=== PATIENT | male | born 1950 | race Caucasian/White ===

== ENCOUNTER → 2017-02-11 | Day surgery (SDC) | payer OTHER ==
[~2017-02-11] MED LIST: ASPI81TA82 PO; CARV3.12 PO; IOHEXOL 180 MG/ML 20 ML VIAL (for RAD DIAG) OTHER ONE; LACTATED RINGER'S 1000 ML INJ 1,000 ML ONE; LIDOCAINE HCL 1% PF 30 ML VIAL ONE; LISI-357 PO; MIDAZOLAM HCL 2 MG/2 ML VIAL ONE; PROPOFOL 200 MG/20 ML AMP IV ONE; TERA1CAP8 PO; TRAM50 PO; TRIAMCINOLONE ACETONIDE 40 MG/ML VIAL ONE
--- NOTE | 2017-02-11 13:33 | TN ---
cc: HARPREET HAAS Corrected Copy: 02/24/17 DATE OF SURGERY 02/11/2017 PREOPERATIVE DIAGNOSIS Malfunctioning right total knee replacement arthroplasty POSTOPERATIVE DIAGNOSIS Malfunctioning right total knee replacement arthroplasty PROCEDURE 1. Aspiration right knee under anesthesia. 2. Manipulation right knee under anesthesia. 3. Arthrogram of the right knee number. 4. Use of fluoroscopy for percutaneous needle placement. 5. Intraoperative x-ray right knee, two views. SURGEON Harpreet Haas MD ANESTHESIA TIVA BLOOD LOSS None INDICATION This patient is a 66-year-old male who is over 10 years status post right total knee replacement arthroplasty done elsewhere. The patient is having clinical evidence of subsidence of the tibial component and concern of loosening. He presents for evaluation for possible infection with malfunction of the components. PROCEDURE The patient was brought to the operating room, given limited sedation. The right knee was evaluated under anesthesia. Range of motion was extension full, flexion 100 degrees. This is fairly stable to varus-valgus stress. The right knee was scrubbed with alcohol, followed by Hibiclens, followed by Chloraprep and draped sterilely. Under fluoroscopic guidance, the needle was placed into a subpatellar position. 10 cc of fluid was aspirated. This was sent for cell count, crystals and culture and sensitivity. We then injected with 10 cc of Omnipaque 180. The knee was evaluated under anesthesia. We could see tracking of the contrast underneath the femoral component and tibial component consistent with loosening. The patella was in a significantly baja position. The needle was withdrawn. A Band-Aid was placed on this region. The patient was awakened and taken to recovery in satisfactory condition. MD LASHAY Fields/ROSA /1:10 PM /12:22 PM
[2017-02-11 17:00] LABS: WBC, SYNOVIAL FLUID 600 /MM3 (0-200)
== END | disposition home or self-care (01) ==
LOC: ESDC 10:24
PROVIDERS: ATTEND Orthopaedic Surgery Orthopaedic Surgery of the Spine
DX: T84.090A Other mechanical complication of internal right hip prosthesis, initial encounter (principal)
CPT/HCPCS: 01200; 27275; 73560; 76000; 87015; 87070; 87102; 87116; 87205; 87206; 89051; 89060; J2250; J3010; J7120; Q9965; J3301

== ENCOUNTER 2017-03-15 06:55 | Inpatient (IN) | payer OTHER, MEDICARE ==
[~2017-03-15] VITALS: Ht 180.3 cm; Wt 76.9 kg
[~2017-03-15 06:55] MED LIST changes: +ASPI81TA11 PO; -ASPI81TA82 PO; -IOHEXOL 180 MG/ML 20 ML VIAL (for RAD DIAG) OTHER ONE; -LACTATED RINGER'S 1000 ML INJ 1,000 ML ONE; -LIDOCAINE HCL 1% PF 30 ML VIAL ONE; -LISI-357 PO; +LISI-519 PO; -MIDAZOLAM HCL 2 MG/2 ML VIAL ONE; +OMEP20TA PO; -PROPOFOL 200 MG/20 ML AMP IV ONE; +SIMV20TA PO; -TERA1CAP8 PO; +TERA2CAP3 PO; -TRAM50 PO; -TRIAMCINOLONE ACETONIDE 40 MG/ML VIAL ONE; +VITA1000 PO
[2017-03-15] MEDS ORDERED: INSULIN HUMAN REGULAR 1,000 UNITS/10 ML VIAL SQ PRN (07:30)
[2017-03-15] MEDS ORDERED: LACTATED RINGER'S 1000 ML IV PRN (07:30)
[2017-03-15] MEDS ORDERED: CHLORHEXIDINE GLUCONATE 2 % 1 PACK (2 CLOTHS) TOPICAL PRN (07:30)
[2017-03-15] MEDS ORDERED: SODIUM CHLORID 0.9% 500 ML IV PRN (07:30)
[2017-03-15] MEDS ORDERED: VANCOMYCIN 1000 MG/NS 250 ML (for <70 kg) IV SCH ×2 (07:30)
[2017-03-15] MEDS ORDERED: METOPROLOL TARTRATE 25 MG TAB PO PRN (07:30)
[2017-03-15] MEDS ORDERED: POVIDONE IODINE 7.5% SCRUB 118 ML BOTTLE TOPICAL SCH (07:30)
[2017-03-15] MEDS ORDERED: POVIDONE IODINE 5% (ANTISEPSIS KIT) 4 APPLICATIONS EACH NARE PRN (07:30)
[2017-03-15] MEDS ORDERED: METO25TA3 PO (07:44)
[2017-03-15] MEDS ORDERED: SODIUM CHLORIDE 0.9% IV SCH ×2 (08:00→14:29)
[2017-03-15] MEDS ORDERED: EXPAREL PERI-ARTICULAR INJECTION (TOTAL VOL. 60 ML) P-ARTICULR SCH ×2 (08:00)
[2017-03-15] MEDS ORDERED: ceFAZolin 2 GM PREMIX 50 ML IV SCH (08:00)
[2017-03-15] MEDS ORDERED: TRANEXAMIC ACID IV SCH ×2 (08:00→14:29)
[2017-03-15] MEDS ORDERED: GENTAMICIN SULFATE 80 MG/2 ML VIAL ONE (09:49)
[2017-03-15] MEDS ORDERED: DEXAMETHASONE SOD PHOS PF 10 MG/ML VIAL ONE (10:08)
[2017-03-15] MEDS ORDERED: BUPIVACAINE HCL PF 0.5% 30 ML VIAL ONE (10:08)
[2017-03-15] MEDS: LACTATED RINGER'S 1000 ML INJ 1,000 ML IV SCH (14:44)
[2017-03-15] MEDS ORDERED: MISCELLANEOUS PHARMACY INFORMATION XX ONE (14:45)
[2017-03-15] MEDS ORDERED: MISCELLANEOUS NURSING INFORMATION XX PRN (14:45)
[2017-03-15] MEDS ORDERED: MORPHINE SULFATE 30 MG/30 ML PCA IV SCH (14:45)
[2017-03-15] MEDS ORDERED: SODIUM CHLORIDE 0.9% FLUSH 5 ML FLUSH IVF PRN (14:45)
[2017-03-15] MEDS ORDERED: Post-op Orders (for Pharmacy) MISC XX ONE (14:45)
[2017-03-15] MEDS ORDERED: MORPHINE SULFATE 8 MG/ML INJ IM PRN (14:45)
[2017-03-15] MEDS ORDERED: NALOXONE HCL 0.4 MG/ML AMP IV PUSH PRN (14:45)
[2017-03-15] MEDS ORDERED: TEMAZEPAM 15 MG CAP PO PRN (14:45)
[2017-03-15] MEDS ORDERED: OXYC-392 PO (14:49)
[2017-03-15] MEDS ORDERED: XARE10TA PO (14:49)
--- NOTE | 2017-03-15 14:59 | PD.OP ---
cc: Venkat Stephenson MD Operative Report Date of Surgery: Mar 15, 2017 Preoperative Diagnosis: Malfunctioning right total knee replacement arthroplasty. Loosening of right femoral and possibly tibial component right total knee replacement arthroplasty Postoperative Diagnosis: Malfunctioning right total knee replacement arthroplasty. Loosening of right femoral component Procedure: Revision right total knee replacement arthroplasty. Proximal tibial osteotomy and fixation Anesthesia: Gen. Surgeon: Venkat Stephenson Safety Spec(s): EMILIE Kyle Operation and Findings: EBL: 200 cc INDICATION: This patient presents with long-standing arthritis of the knee. This patient has had extensive conservative care and came to a total knee replacement arthroplasty. This patient now has malfunctioning components with loosening and evidence of subsidence. This patient presents for revision knee arthroplasty. NOTE: Erum Kyle PA-C was present for the entire surgical procedure as my reference assistant. In my medical opinion her skill and care was necessary for proper management of this patient. TOURNIQUET TIME: 122 minutes COMPANY: [employer] FEMUR: Size 4, posterior stabilized, right, cemented, 4 mm medial and lateral distal augment buildup TIBIA: Size 4, fixed bearing, 115 mm x 14 mm uncemented stem PATELLA: 38 mm POLYETHYLENE INSERT: 12.5 mm, posterior stabilized PROCEDURE: This patient was brought the operating room and anesthetized in the supine position. The patient was positioned supine on the table. The tourniquet was placed about the thigh, and the leg was scrubbed with alcohol followed by Hibiclens followed by ChloraPrep and draped sterilely. A timeout was done, and antibiotics were given. After exsanguination the tourniquet was inflated to 250 mmHg. An anterior incision was made and a median parapatellar arthrotomy was performed. The previous incision was excised. Because the patella was in a patella baja position and very scarred down, this would have put the patella tendon insertion at risk. We elected to do a proximal tibial osteotomy. I saw was used along the medial side. An osteotome proximally with a small saw distally at an angle. Osteotomes were placed in the lateral side and very carefully this was opened removing the proximal tibial tuberosity with the patella tendon attachment extending approximately 7 cm. His protected. The patella was released laterally and subluxed allowing freehand cut of the patella which was then sized. A metal cap was placed over the exposed patellar surface for protection. The distal femur had significant osteolysis around it and was loosened. Multiple osteotomes were used to remove this carefully. This was removed in a retrograde fashion. Most of the bone was remaining and very little bone stock was lost. The attention was directed down back to the tibia. Very carefully a saw was used followed by osteotomes and the proximal tibial component was removed in a retrograde fashion. The tibia was approached and reamed to accept a 14 mm reamer. This is sized for a 115 mm stem the intramedullary reamer was used for a guide. This was then cut for a #4 tibial component. All fit was excellent. The attention was directed to the femur. We cut this at 4 using a primary posterior stabilized component. This was sized carefully. Anterior posterior and chamfer cuts were made. The box cut was made allowing a 4 mm distal buildup. We did this intentionally because of the patella Baha position allowing the joint to be placed slightly inferior in helping the patella because of the condition. We did a trial reduction and found that between a 10 and 12.5 mm insert fit best. Trial reduction showed that the insert fit nicely with a 12.5 mm insert.. The patient had range of motion extension 0 flexion 125 . A medial release was not necessary. Multiple drill holes were placed in the tibial tubercle osteotomy. We then placed #2 fiber wires through these drill holes placing them then into the canal so that the stem of the tibial component could act as a buttressing anchor. The bony surfaces prepared. On the back table 2 packets of methylmethacrylate were mixed. The components were cemented. Excess cement was removed. The tourniquet let down and hemostasis was controlled. The final plastic insert was inserted. Range of motion was the same as previously noted. The tibial tubercle osteotomy was repaired in the overall repair was felt to be very satisfactory. There was no complication was appreciated. A drain was brought through a separate stab incision. The arthrotomy was repaired with interrupted #1 Vicryl suture, subcutaneous tissue 2-0 Vicryl suture and skin with metallic laurence A sterile dressing was applied. Sponge counts, needle counts and instrument counts were all correct. The patient tolerated procedure well and was taken to recovery in satisfactory condition. FINDINGS: There was evidence of loosening of the femoral component. There was ostial lysis underneath the tibial component. The overall bone stock was satisfactory. We could not appreciate any complication. Venkat Stephenson MD Mar 15, 2017 14:59
[2017-03-15] MEDS ORDERED: DO NOT ADM ANY ANTICOAGULANT DRUGS PRN (15:18)
--- NOTE | 2017-03-15 16:08 | RADRPT ---
EXAM DATE/TIME: 03/15/2017 15:27 [facility] COMPARISON: KNEE RIGHT LTD (1 OR 2 VWS), February 11, 2017, 12:58. INDICATIONS : Post op right knee. MEDICAL HISTORY : None. SURGICAL HISTORY : None. ENCOUNTER: Initial ACUITY: 1 day PAIN SCORE: Non-responsive. LOCATION: Right knee. FINDINGS: 2 view examination demonstrates total knee arthroplasty with long shaft tibial component. Near-anato mireya alignment of the osseous structures. Skin laurence and suprapatellar drain in place. CONCLUSION: Expected postsurgical findings post total knee arthroplasty. Rajat Brink MD on March 15, 2017 at 16:04 Board Certified Radiologist. This report was verified electronically.
[2017-03-15 17:26] VITALS: BP 158/76; PULSE 76; RESP 17; TEMP 96.4; O2SAT 95
[2017-03-15 19:40] VITALS: BP 146/70; PULSE 82; RESP 18; TEMP 96.1; O2SAT 96
[2017-03-15] MEDS: SENNOSIDES 8.6 MG TAB PO SCH (19:46)
[2017-03-15] MEDS: PRAVASTATIN SOD 40 MG TAB PO SCH (19:46)
[2017-03-15] MEDS: TERAZOSIN HCL 1 MG CAP PO SCH (19:46)
[2017-03-15] MEDS: MAGNESIUM HYDROXIDE SUSP 30 ML CUP PO SCH (19:46)
[2017-03-15] MEDS: METOPROLOL TARTRATE 25 MG TAB PO SCH (19:46)
[2017-03-15] MEDS: SODIUM CHLORIDE 0.9% FLUSH 5 ML FLUSH IVF SCH (19:46)
[2017-03-15] MEDS: PCA - TOTAL MG MORPHINE DELIVERED PER SHIFT SCH (21:56)
[2017-03-16] VITALS (8 sets, daily range): BP systolic 114–141; BP diastolic 59–70; PULSE 71–100; RESP 16–19; TEMP 96.7–98.3; O2SAT 92–99
[2017-03-16] MEDS: LACTATED RINGER'S 1000 ML INJ 1,000 ML IV SCH ×2 (02:37→04:47)
[2017-03-16] MEDS: PCA - TOTAL MG MORPHINE DELIVERED PER SHIFT SCH ×2 (06:00→14:00)
[2017-03-16 06:13] LABS: HEMATOCRIT 35.7 % (39.0-51.0)
[2017-03-16] MEDS: oxyCODONE/ACETAMINOPHEN 5 MG/325 MG TAB PO PRN ×3 (08:29→22:43)
[2017-03-16] MEDS: LISINOPRIL 5 MG TAB PO SCH (08:30)
[2017-03-16] MEDS: MAGNESIUM HYDROXIDE SUSP 30 ML CUP PO SCH ×2 (08:30→22:28)
[2017-03-16] MEDS: PANTOPRAZOLE SOD 20 MG DELAYED RELEASE TAB PO SCH (08:30)
[2017-03-16] MEDS: METOPROLOL TARTRATE 25 MG TAB PO SCH ×2 (08:30→22:30)
[2017-03-16] MEDS: SODIUM CHLORIDE 0.9% FLUSH 5 ML FLUSH IVF SCH ×2 (08:43→22:30)
--- NOTE | 2017-03-16 13:31 | PD.ORT.PN ---
Subjective Subjective Remarks Doing well this morning. Moderate right knee pain but 'tolerable'. Some aching when on the CPM. No other complaints. Many questions about surgery. Objective Vitals Vital Signs Date Time Temp Pulse Resp B/P (MAP) Pulse Ox O2 Delivery O2 Flow Rate FiO2 03/16/17 11:56 97.8 83 19 141/65 (90) 92 03/16/17 10:56 92 21 03/16/17 08:00 98.3 100 19 138/64 (88) 99 03/16/17 06:00 16 03/16/17 04:35 98.2 71 16 134/63 (86) 95 03/16/17 00:25 96.7 77 16 114/59 (77) 94 03/15/17 21:56 16 03/15/17 19:40 96.1 82 18 146/70 (95) 96 03/15/17 17:26 96.4 76 17 158/76 (103) 95 03/15/17 16:45 74 15 135/62 (86) 95 Room Air 03/15/17 16:30 69 15 137/55 (82) 93 Room Air 03/15/17 16:28 20 03/15/17 16:17 77 22 146/65 (92) 93 Room Air 03/15/17 16:00 78 15 145/66 (92) 93 Room Air 03/15/17 15:58 15 03/15/17 15:45 72 15 132/60 (84) 93 Nasal Cannula 2 03/15/17 15:30 74 19 133/64 (87) 95 Nasal Cannula 2 03/15/17 15:15 76 13 140/65 (90) 95 Nasal Cannula 2 03/15/17 15:12 98.0 81 15 139/63 (88) 96 Nasal Cannula 4 I/O 03/15/17 03/15/17 03/15/17 03/16/17 03/16/17 03/16/17 07:00 15:00 23:00 07:00 15:00 23:00 Intake Total 2000 ml 2060 ml 240 ml Output Total 3300 ml 1800 ml 1650 ml Balance -1300 ml 260 ml -1410 ml Intake Oral 960 ml 240 ml IV Total 1100 ml Other 2000 ml Output Urine Total 200 ml 1450 ml 1350 ml Drainage Total 350 ml 300 ml Estimated Blood Loss 100 ml Other 3000 ml # Bowel Movements 0 0 Result Diagram: 03/16/17 0515 Imaging Last 24 hours Impressions Knee X-Ray 03/15/17 1444 Signed Impressions: Service Date/Time: Wednesday, March 15, 2017 15:27 - CONCLUSION: Expected postsurgical findings post total knee arthroplasty. Rajat Brink MD Objective Remarks Laying in bed In CPM NAD VSS RLE Dressing intact, drain in place, some swelling and warmth, no erythema +motor at, +sens, +nvi neg homans Assessment & Plan Ortho Post Op Day #: 1 Problem List: Assessment and Plan pod#1 s/p Revisional R TKA with tibial tubercle osteotomy Ortho stable. Continue knee drain until tomorrow am then DC. 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 PO pain meds as needed. Xarelto 10mg qd. Hold dressing changes unless saturated. Ok to change drain site dressing tomorrow only. PT - 50% WBing RLE. CKS when ambulating and when sleeping in bed. Ok to remove for ROM and PT. D/C planning, likely SNF. Julita Morgan Mar 16, 2017 13:31
[2017-03-16] MEDS: RIVAROXABAN 10 MG TAB PO SCH (15:17)
[2017-03-16] MEDS: SENNOSIDES 8.6 MG TAB PO SCH (22:30)
[2017-03-16] MEDS: PRAVASTATIN SOD 40 MG TAB PO SCH (22:30)
[2017-03-16] MEDS: TERAZOSIN HCL 1 MG CAP PO SCH (22:30)
[2017-03-17 00:17] VITALS: BP 154/69; PULSE 84; RESP 17; TEMP 98.4; O2SAT 94
[2017-03-17] MEDS: LACTATED RINGER'S 1000 ML INJ 1,000 ML IV SCH (04:14)
[2017-03-17 04:21] VITALS: BP 120/59; PULSE 76; RESP 17; TEMP 98; O2SAT 94
[2017-03-17] MEDS: MAGNESIUM HYDROXIDE SUSP 30 ML CUP PO SCH (07:56)
[2017-03-17] MEDS: PANTOPRAZOLE SOD 20 MG DELAYED RELEASE TAB PO SCH (07:56)
[2017-03-17] MEDS: LISINOPRIL 5 MG TAB PO SCH (07:56)
[2017-03-17] MEDS: METOPROLOL TARTRATE 25 MG TAB PO SCH (07:56)
[2017-03-17] MEDS: oxyCODONE/ACETAMINOPHEN 5 MG/325 MG TAB PO PRN ×2 (07:57→12:00)
[2017-03-17 08:00] VITALS: BP 148/63; PULSE 87; RESP 16; TEMP 97.6; O2SAT 93
--- NOTE | 2017-03-17 08:44 | HHI.DCPOC ---
Discharge Care Plan Diagnosis: (1) Other mechanical complication of internal right knee prosthesis, initial encounter Your Health Problems Are: Incision/Drains Inflammation Swelling Goals to Promote Your Health * To prevent worsening of your condition and complications * To maintain your health at the optimal level Directions to Meet Your Goals Take your medications as prescribed Follow your dietary instruction Follow activity as directed Keep your appointments as scheduled Take your immunizations and boosters as scheduled If your symptoms worsen call your PCP, if no PCP go to Urgent Care Center or Emergency Room Smoking is Dangerous to Your Health. Avoid second hand smoke Call the 24-hour hour crisis hotline for domestic abuse at Julita Morgan Mar 17, 2017 08:44
--- NOTE | 2017-03-17 08:44 | HHI.DCPOC ---
Discharge Care Plan Diagnosis: (1) Other mechanical complication of internal right knee prosthesis, initial encounter Your Health Problems Are: Incision/Drains Inflammation Swelling Goals to Promote Your Health * To prevent worsening of your condition and complications * To maintain your health at the optimal level Directions to Meet Your Goals Take your medications as prescribed Follow your dietary instruction Follow activity as directed Keep your appointments as scheduled Take your immunizations and boosters as scheduled If your symptoms worsen call your PCP, if no PCP go to Urgent Care Center or Emergency Room Smoking is Dangerous to Your Health. Avoid second hand smoke Call the 24-hour hour crisis hotline for domestic abuse at Julita Morgan Mar 17, 2017 08:44
--- NOTE | 2017-03-17 08:44 | HHI.DCPOC ---
Discharge Care Plan Diagnosis: (1) Other mechanical complication of internal right knee prosthesis, initial encounter Your Health Problems Are: Incision/Drains Inflammation Swelling Goals to Promote Your Health * To prevent worsening of your condition and complications * To maintain your health at the optimal level Directions to Meet Your Goals Take your medications as prescribed Follow your dietary instruction Follow activity as directed Keep your appointments as scheduled Take your immunizations and boosters as scheduled If your symptoms worsen call your PCP, if no PCP go to Urgent Care Center or Emergency Room Smoking is Dangerous to Your Health. Avoid second hand smoke Call the 24-hour hour crisis hotline for domestic abuse at Julita Morgan Mar 17, 2017 08:44
[2017-03-17] MEDS ORDERED: WALKER WHEELS/F1 MIS (08:45)
[2017-03-17] MEDS ORDERED: CPMMACHINE (08:45)
--- NOTE | 2017-03-17 08:46 | HHI.DS ---
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 He has a total knee replacement 11 years ago by [place] physician. He began having increased pain with weightbearing the spring. His PCP referred him to orthopaedics. Imaging studies showed possible loosening. Labwork was performed in addition to an aspiration to rule out an infectious cause. After labs and cultures returned negative it was recommended he move forward with revisional right total knee arthroplasty, possible tibial tubercle osteotomy. The patient agreed and now presents for the above. CBC/BMP: 03/16/17 0515 Significant Findings Laboratory Tests Test 03/16/17 05:15 Hemoglobin 12.0 GM/DL (13.0-17.0) Hematocrit 35.7 % (39.0-51.0) PE at Discharge Laying in bed In CPM NAD VSS RLE Dressing intact, drain in place, some swelling and warmth, no erythema +motor at, +sens, +nvi neg [facility] Hospital Course Surgical treatment was performed on the day of admission without complication. He recovered well in PACU and was transferred to the orthopaedic floor. Pain was controlled with IV and oral medications. DVT prophylaxis was initiated pod# 1 using xarelto. He was compliant with physical therapy and all weightbearing restrictions including use of his canvas knee splint. After 2 days he was found to be stable and discharged to a senior living facility. He was instructed to continue 50% weightbearing on his right lower extremity and to weightbear in his canvas knee splint, to pursue a high fiber diet and to continue his pain medication as needed in addition to his anticoagulant. He was given prescriptions for percocet 5mg and xarelto 10mg. Pt Condition on Discharge: Stable Discharge Disposition: Discharge to SNF Discharge Instructions Diet Instructions: As Tolerated, No Restrictions, High Fiber Diet Activities You Can Perform: Partial Weight Bearing Activities to Avoid: Strenuous Activity Additional Activity Instruc.: 50% weight bear knee immobilizer when ambulating New Medications: CPM-Continuous Passive Motion Machine (CPM-Continuous Passive Motion Machine) 1 Ea Device EA .ROUTE DIRECTED, #1 0 Refills Oxycodone (Oxycodone) 5 Mg Tab 5 MG PO Q4H PRN for PAIN, #50 TAB 0 Refills Walker with Front Wheels (Walker with Front Wheels) 1 Mis Mis EA .ROUTE DIRECTED, #1 0 Refills Rivaroxaban (Xarelto) 10 Mg Tab 10 MG PO Q24H for Prevent Blood Clot, #15 TAB Continued Medications: Cholecalciferol (Vitamin D-1000) 1,000 Unit Tab 1000 UNITS PO DAILY for Nutritional Supplement, #1 BOTTLE 0 Refills Lisinopril (Lisinopril) 5 Mg Tab 5 MG PO DAILY for Blood Pressure Management, #30 TAB 0 Refills Metoprolol Tartrate (Metoprolol Tartrate) 25 Mg Tab 25 MG PO BID, TAB 0 Refills Omeprazole (Omeprazole) 20 Mg Tab 20 MG PO DAILY, #30 TAB 0 Refills Simvastatin (Simvastatin) 20 Mg Tab 20 MG PO HS for Cholesterol Management, #30 TAB 0 Refills Terazosin (Terazosin) 2 Mg Cap 4 MG PO HS, #30 CAP 0 Refills Discontinued Medications: Aspirin DR (Aspirin EC) 81 Mg Tabdr 81 MG PO DAILY, TAB 0 Refills Julita Morgan Mar 17, 2017 08:46
--- NOTE | 2017-03-17 08:46 | HHI.DS ---
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 He has a total knee replacement 11 years ago by [place] physician. He began having increased pain with weightbearing the spring. His PCP referred him to orthopaedics. Imaging studies showed possible loosening. Labwork was performed in addition to an aspiration to rule out an infectious cause. After labs and cultures returned negative it was recommended he move forward with revisional right total knee arthroplasty, possible tibial tubercle osteotomy. The patient agreed and now presents for the above. CBC/BMP: 03/16/17 0515 Significant Findings Laboratory Tests Test 03/16/17 05:15 Hemoglobin 12.0 GM/DL (13.0-17.0) Hematocrit 35.7 % (39.0-51.0) PE at Discharge Laying in bed In CPM NAD VSS RLE Dressing intact, drain in place, some swelling and warmth, no erythema +motor at, +sens, +nvi neg [facility] Hospital Course Surgical treatment was performed on the day of admission without complication. He recovered well in PACU and was transferred to the orthopaedic floor. Pain was controlled with IV and oral medications. DVT prophylaxis was initiated pod# 1 using xarelto. He was compliant with physical therapy and all weightbearing restrictions including use of his canvas knee splint. After 2 days he was found to be stable and discharged to a shelter facility. He was instructed to continue 50% weightbearing on his right lower extremity and to weightbear in his canvas knee splint, to pursue a high fiber diet and to continue his pain medication as needed in addition to his anticoagulant. He was given prescriptions for percocet 5mg and xarelto 10mg. Pt Condition on Discharge: Stable Discharge Disposition: Discharge to SNF Discharge Instructions Diet Instructions: As Tolerated, No Restrictions, High Fiber Diet Activities You Can Perform: Partial Weight Bearing Activities to Avoid: Strenuous Activity Additional Activity Instruc.: 50% weight bear knee immobilizer when ambulating New Medications: CPM-Continuous Passive Motion Machine (CPM-Continuous Passive Motion Machine) 1 Ea Device EA .ROUTE DIRECTED, #1 0 Refills Oxycodone (Oxycodone) 5 Mg Tab 5 MG PO Q4H PRN for PAIN, #50 TAB 0 Refills Walker with Front Wheels (Walker with Front Wheels) 1 Mis Mis EA .ROUTE DIRECTED, #1 0 Refills Rivaroxaban (Xarelto) 10 Mg Tab 10 MG PO Q24H for Prevent Blood Clot, #15 TAB Continued Medications: Cholecalciferol (Vitamin D-1000) 1,000 Unit Tab 1000 UNITS PO DAILY for Nutritional Supplement, #1 BOTTLE 0 Refills Lisinopril (Lisinopril) 5 Mg Tab 5 MG PO DAILY for Blood Pressure Management, #30 TAB 0 Refills Metoprolol Tartrate (Metoprolol Tartrate) 25 Mg Tab 25 MG PO BID, TAB 0 Refills Omeprazole (Omeprazole) 20 Mg Tab 20 MG PO DAILY, #30 TAB 0 Refills Simvastatin (Simvastatin) 20 Mg Tab 20 MG PO HS for Cholesterol Management, #30 TAB 0 Refills Terazosin (Terazosin) 2 Mg Cap 4 MG PO HS, #30 CAP 0 Refills Discontinued Medications: Aspirin DR (Aspirin EC) 81 Mg Tabdr 81 MG PO DAILY, TAB 0 Refills Julita Morgan Mar 17, 2017 08:46
--- NOTE | 2017-03-17 08:48 | PD.ORT.PN ---
Subjective Subjective Remarks He continues to improve. Still has moderate right knee pain but 'tolerable'. He has been compliant with the CPM. He is urinating well. Passing gas. No other complaints. Objective Vitals Vital Signs Date Time Temp Pulse Resp B/P (MAP) Pulse Ox O2 Delivery O2 Flow Rate FiO2 03/17/17 07:35 Room Air 03/17/17 04:21 98.0 76 17 120/59 (79) 94 03/17/17 00:17 98.4 84 17 154/69 (97) 94 03/16/17 20:35 97.0 84 17 117/59 (78) 94 03/16/17 15:46 97.0 85 19 136/59 (84) 94 03/16/17 14:00 18 03/16/17 11:56 97.8 83 19 141/65 (90) 92 03/16/17 10:56 92 21 I/O 03/16/17 03/16/17 03/16/17 03/17/17 03/17/17 03/17/17 07:00 15:00 23:00 07:00 15:00 23:00 Intake Total 240 ml 807 ml 360 ml 240 ml Output Total 1650 ml 50 ml 1100 ml Balance -1410 ml 757 ml 360 ml -860 ml Intake Oral 240 ml 400 ml 360 ml 240 ml IV Total 407 ml Output Urine Total 1350 ml 1100 ml Drainage Total 300 ml 50 ml # Voids 4 3 # Bowel Movements 0 0 1 0 Result Diagram: 03/16/17 0515 Imaging Last 24 hours Impressions Knee X-Ray 03/15/17 1444 Signed Impressions: Service Date/Time: Wednesday, March 15, 2017 15:27 - CONCLUSION: Expected postsurgical findings post total knee arthroplasty. 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 Pain controlled on PO meds. D/C right knee drain. Ok to redress drain site only. Xarelto 10mg qd. Hold dressing changes unless saturated. PT - 50% WBing RLE. CKS when ambulating and when sleeping in bed. Ok to remove for ROM and PT. D/C planning, likely SNF tuesday. Julita Morgan Mar 17, 2017 08:48
[2017-03-17] MEDS: SODIUM CHLORIDE 0.9% FLUSH 5 ML FLUSH IVF SCH (09:00)
[2017-03-17 12:00] VITALS: BP 120/58; PULSE 70; RESP 16; TEMP 97.7; O2SAT 95
[2017-03-17] MEDS: RIVAROXABAN 10 MG TAB PO SCH (15:00)
== END 2017-03-17 15:08 | DRG 468 ==
LOC: HSDI 06:55 → N06B 17:07
PROVIDERS: ADMIT Orthopaedic Surgery Orthopaedic Surgery of the Spine; ATTEND Orthopaedic Surgery Orthopaedic Surgery of the Spine
PROC: 0SRC0J9 Replacement of Right Knee Joint with Synthetic Substitute, Cemented, Open Approach (ICD-10-PCS; 2017-03-15)
PROC: 0SPC0JZ Removal of Synthetic Substitute from Right Knee Joint, Open Approach (ICD-10-PCS; principal; 2017-03-15 12:12)
DX: T84.032A Mechanical loosening of internal right knee prosthetic joint, initial encounter (principal); I10 Essential (primary) hypertension; Y83.1 Surgical operation with implant of artificial internal device as the cause of abnormal reaction of the patient, or of later complication, without mention of misadventure at the time of the procedure; E78.5 Hyperlipidemia, unspecified; J44.9 Chronic obstructive pulmonary disease, unspecified; K21.9 Gastro-esophageal reflux disease without esophagitis; F17.210 Nicotine dependence, cigarettes, uncomplicated
CPT/HCPCS: 73560; 85014; 85018; 86850; 86900; 86901; 86920; 94150; C9290; J0690; J1100; J1580; J2270; J3370; J7050; J7120; L1830